=== PATIENT | male | born 2005 | race African-American/Black ===

== ENCOUNTER 2024-09-07 20:36 | Emergency (ER) | payer MEDICAID ==
[~2024-09-07] VITALS: Ht 172.7 cm; Wt 75.0 kg
[2024-09-07 20:41] VITALS: O2SAT 100
[2024-09-07 22:25] VITALS: TEMP 36.9; O2SAT 99
[2024-09-08 01:07] VITALS: BP 131/74; PULSE 75; RESP 18
[2024-09-08] MEDS: IBUPROFEN 600MG TABLET PO ONE (01:07)
== END 2024-09-08 02:00 | disposition home or self-care (01) ==
LOC: ER 20:36
DX: G89.11 Acute pain due to trauma (principal); M54.6 Pain in thoracic spine; Y04.0XXA Assault by unarmed brawl or fight, initial encounter; Y93.89 Activity, other specified; Y92.89 Other specified places as the place of occurrence of the external cause; Y99.8 Other external cause status
CPT/HCPCS: 71045; 99283

== ENCOUNTER 2025-02-13 15:39 | Emergency (ER) | payer MEDICAID ==
[~2025-02-13] VITALS: Ht 177.8 cm; Wt 75.0 kg
[2025-02-13 15:43] VITALS: O2SAT 100
[2025-02-13 20:13] VITALS: BP 129/84; PULSE 77; RESP 18; TEMP 36.9; O2SAT 100
== END 2025-02-13 20:18 | disposition home or self-care (01) ==
LOC: ER 15:39
DX: S16.1XXA Strain of muscle, fascia and tendon at neck level, initial encounter (principal); S83.91XA Sprain of unspecified site of right knee, initial encounter; S06.0X0A Concussion without loss of consciousness, initial encounter; S63.612A Unspecified sprain of right middle finger, initial encounter; J45.909 Unspecified asthma, uncomplicated; Y04.0XXA Assault by unarmed brawl or fight, initial encounter; Y93.01 Activity, walking, marching and hiking; Y92.89 Other specified places as the place of occurrence of the external cause; Y99.8 Other external cause status
CPT/HCPCS: 73140; 73562; 99284